=== PATIENT | female | born 1965 | race Caucasian/White ===

== ENCOUNTER 2018-10-06 10:43 | Day surgery (SDC) | payer OTHER ==
[~2018-10-06] VITALS: Ht 170.2 cm; Wt 163.6 kg
[2018-10-06 11:48] LABS: HEMATOCRIT 42.5 % (36.0-48.0); HEMOGLOBIN 14.3 g/dL (12-16); MCH 29.1 pg (26.0-34.0); MCHC 33.6 g/dL (31.0-37.0); MCV 86.4 fL (80.0-100.0); MEAN PLATELET VOLUME 9.8 fL (7.4-10.4); RBC 4.92 10x6/uL (4.00-5.40); RDW 13.3 % (11.5-14.5); WBC 8.7 10x3/uL (4.8-10.8)
[2018-10-06 11:54] LABS: HCG SERUM NEGATIVE (NEGATIVE)
[2018-10-06] MEDS ORDERED: BUT/APAP/CAF CAP PO (12:47)
[2018-10-06] MEDS ORDERED: PROZAC40 MG PO (12:47)
[2018-10-06] MEDS ORDERED: ELAVIL10 MG PO (12:47)
[2018-10-06] MEDS ORDERED: PEPCID AC20 MG PO (12:49)
[2018-10-06] MEDS ORDERED: IBUPROFEN800 MG PO (12:49)
[2018-10-06 12:59] VITALS: BP 151/94; Ht 170.2 cm; Wt 163.6 kg
--- NOTE | 2018-10-06 17:20 | OP ---
PATIENT NAME: ELIZABETH BAIRES MEDICAL RECORD: [id number] :69 LOCATION:D.OPS ADMISSION DATE: SURGEON: FRANCE CHRISTINA MD DATE OF OPERATION: 10/06/2018 REFERRING PHYSICIAN: Andreina Gama MD PROCEDURE: Colonoscopy with biopsy. INDICATIONS: Ms. Baires is a pleasant 53-year-old woman who presents for outpatient screening colonoscopy. PREMEDICATIONS: Total IV anesthesia (propofol 350 mg), (BMI of 55). INSTRUMENT: Olympus video colonoscope, pediatric. PROCEDURE AND FINDINGS: After receiving informed consent, Ms. Baires was placed in left lateral decubitus position and sedated as per anesthesia. After achieving adequate level of sedation, digital rectal exam was performed that showed few external hemorrhoidal tags. No fissures or fistulas. Normal sphincter tone. No palpable rectal masses. Colonoscope was introduced per rectally and advanced to the cecum without difficulty. The cecum, IC valve, and appendiceal orifice were identified and appeared normal. As the colonoscope was withdrawn, careful inspection was made of the najera of the colon. Overall mucosa had normal vascular and fold pattern. There was mild patchy erythema noted in descending and proximal sigmoid colon (biopsies taken from descending and sigmoid colon). Retroflexion in the rectum showed mild internal hemorrhoids with few tags. A good prep was present. Ms. Baires tolerated the procedure well. No immediate complications. Withdrawal time was 8 minutes. ASSESSMENT: 1. Mild nonspecific colitis involving descending and sigmoid colon, likely secondary to bowel prep. 2. Mild internal hemorrhoids. RECOMMENDATIONS: 1. Follow up histopathology. 2. High-fiber diet. 3. Surveillance colonoscopy in 10 years. TRANSINT:[id number] Voice Confirmation ID: [id number] DOCUMENT ID: [id number] FRANCE CHRISTINA MD at 1720 CC: ANDREINA GAMA [id number] DICTATION DATE: 10/06/18 1348 [employer] INSTALLER: 10/06/18 1442 [facility] 10/06/[address] [id number]
== END 2018-10-06 14:55 | disposition home or self-care (01) ==
LOC: D.OPS 10:43
PROVIDERS: Anesthesiology
DX: Z12.11 Encounter for screening for malignant neoplasm of colon (principal); K52.9 Noninfective gastroenteritis and colitis, unspecified; K64.8 Other hemorrhoids; Z01.812 Encounter for preprocedural laboratory examination